=== PATIENT | female | born 1990 | race Caucasian/White ===

== ENCOUNTER → 2024-01-31 16:47 | Outpatient (REF) | payer BC, SELFPAY | LOC: RAD 16:47 | PROVIDERS: ATTENDING PHYSICIAN Physician Assistant | DX: M25.551 Pain in right hip (principal); M54.41 Lumbago with sciatica, right side | CPT/HCPCS: 72110; 73502 ==

== ENCOUNTER 2024-03-16 20:13 | Emergency (ER) | payer BC, SELFPAY ==
[2024-03-16 20:13] VITALS: BMI 32.0
[2024-03-16 20:15] VITALS: BP 130/91
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
[2024-03-16] MEDS: TORADOL 30 MG IM (23:14)
== END 2024-03-17 00:46 | disposition home or self-care (01) ==
LOC: EMR 20:13
PROVIDERS: EMERGENCY PHYSICIAN Student in an Organized Health Care Education/Training Program; FAMILY PHYSICIAN Physician Assistant
DX: S93.401A Sprain of unspecified ligament of right ankle, initial encounter (principal); R20.0 Anesthesia of skin; M54.50 Low back pain, unspecified; R20.2 Paresthesia of skin; V86.59XA Driver of other special all-terrain or other off-road motor vehicle injured in nontraffic accident, initial encounter; M51.26 Other intervertebral disc displacement, lumbar region; M54.30 Sciatica, unspecified side; E03.9 Hypothyroidism, unspecified; F41.9 Anxiety disorder, unspecified; F32.A Depression, unspecified; F17.200 Nicotine dependence, unspecified, uncomplicated; Z88.0 Allergy status to penicillin
CPT/HCPCS: 99284; 96372; 73610